=== PATIENT | female | born 1935 | race Caucasian/White ===

== ENCOUNTER → 2019-03-08 | Outpatient (CLI) | payer MEDICARE ==
[~2019-03-08] MED LIST: FLAXSEED OIL1000 MG PO; MULTI VITAMINS1 TAB PO; PREDNISONE 2.52.5 MG PO; VITAMIN E1000 U/CAP PO; VITAMINC1000TA PO; ZANTAC 150MG T150 MG PO
== END ==
LOC: COL.RAD 14:39
DX: R91.8 Other nonspecific abnormal finding of lung field (principal)

== ENCOUNTER 2019-04-21 13:32 | Emergency (ER) | payer MEDICARE ==
[~2019-04-21] VITALS: Ht 160 cm; Wt 63.6 kg
[2019-04-21 14:53] LABS: HEMOGLOBIN 12.1 g/dl (12.5-16.0); MEAN CELL VOLUME 84 fl (80.0-100.0); MEAN CORPUSCULAR HEMOGLOBIN 28 pg (27.0-31.0); MEAN CORPUSCULAR HGB CONC 34 g/dl (33.0-37.0); MEAN PLATELET VOLUME 11.2 fl (7.4-10.4); PLATELET COUNT 216 K/mm3 (130-400); RED BLOOD COUNT 4.28 M/mm3 (4.10-5.30); REDCELL DISTRIBUTION WIDTH-CV 13.2 % (11.5-14.5)
[2019-04-21 14:58] LABS: HEMATOCRIT 35.8 % (37.0-47.0)
[2019-04-21 14:59] LABS: ALANINE AMINOTRANSFERASE 114 U/L (9-52); ALBUMIN 3.8 gm/dL (3.5-5.0); ALKALINE PHOSPHATASE 95 U/L (50-136); ANION GAP 12 mmol/L (7-16); AST,SGOT 94 U/L (15-37); BILIRUBIN,TOTAL 0.9 mg/dL (0.0-1.0); BLOOD UREA NITROGEN 17 mg/dL (7-17); CALCIUM 10.3 mg/dL (8.4-10.2); CARBON DIOXIDE 29 mmol/L (22-30); CHLORIDE 96 mmol/L (98-107); CREATININE, serum 0.49 (0.52-1.25); GLUCOSE 101 mg/dL (74-106); LIPASE 327 U/L (23-300); POTASSIUM 3.2 mmol/L (3.4-5.0); SODIUM 137 mmol/L (137-145); TOTAL PROTEIN 6.6 gm/dL (6.4-8.2)
[2019-04-21 15:12] LABS: TROPONIN-I < 0.012 ng/mL (0.000-0.035)
[2019-04-21] MEDS ORDERED: ZYLOPRIM 300MG300 MG PO (15:31)
[2019-04-21 15:41] LABS: LYMPHOCYTE 11 % (20.0-51.0); MICROCYTOSIS 1+; NEUTROPHILS 89 % (42.0-75.2); PLATELET ESTIMATE NORMAL (NORMAL)
[2019-04-21 17:40] VITALS: BP 140/80; PULSE 104; TEMP 98.1
== END 2019-04-21 17:40 | disposition home or self-care (01) ==
LOC: COL.ER 13:32
PROVIDERS: Emergency Medicine
DX: K59.00 Constipation, unspecified (principal)